=== PATIENT | female | born 1965 | race Caucasian/White ===

== ENCOUNTER → 2017-07-19 08:48 | Outpatient (CLI) | payer MEDICARE, MEDICAID, SELFPAY ==
[2017-07-19 09:27] LABS: Amphetamine/Metha Screen,Urine Negative ng/mL (<1000); Barbiturates Screen,Urine Negative ng/mL (<200); Benzodiazepines Screen,Urine Negative ng/mL (200); Cannabinoid Screen,Urine Negative ng/mL (<50); Cocaine Screen,Urine Negative ng/g (<300); Methadone Screen,Urine Negative ng/mL (<300); Opiate Screen,Urine Positive ng/mL (<300); Phencyclidine Screen,Urine Negative ng/mL (<25)
[2017-07-25 16:13] LABS: Oxycodone (GC/MS) 4760 ng/mL (Cutoff=100)
[2017-07-25 17:15] LABS: Opiates Negative (Cutoff=100); Oxymorphone (GC/MS) 3600 ng/mL (Cutoff=100)
== END ==
PROVIDERS: PCP Family Medicine; Visit Provider Clinical Nurse Specialist Family Health
DX: Z79.899 Other long term (current) drug therapy (principal)
CPT/HCPCS: 80305; 80361; 80365; G0480

== ENCOUNTER → 2017-08-16 12:50 | Outpatient (POV) | payer MEDICARE, MEDICAID, SELFPAY ==
[2017-08-16 13:34] VITALS: BP 154/60; PULSE 96; RESP 20; O2SAT 98; BMI 24.3
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
== END ==
PROVIDERS: PCP Family Medicine; Visit Provider Anesthesiology
DX: M54.16 Radiculopathy, lumbar region (principal)
CPT/HCPCS: 99212

== ENCOUNTER → 2017-12-13 09:48 | Outpatient (POV) | payer MEDICARE, MEDICAID, SELFPAY ==
[2017-12-13 09:55] VITALS: BP 129/85; PULSE 90; RESP 18; O2SAT 98; BMI 24.5
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
[2017-12-13 10:38] LABS: Amphetamine/Metha Screen,Urine Negative ng/mL (<1000); Barbiturates Screen,Urine Negative ng/mL (<200); Benzodiazepines Screen,Urine Negative ng/mL (<200); Cannabinoid Screen,Urine Negative ng/mL (<50); Cocaine Screen,Urine Negative ng/mL (<300); Methadone Screen,Urine Negative ng/mL (<300); Opiate Screen,Urine Positive ng/mL (<300); Phencyclidine Screen,Urine Negative ng/mL (<25)
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
[2017-12-23 23:07] LABS: Oxycodone (GC/MS) >3000 ng/mL (Cutoff=100)
[2017-12-24 06:35] LABS: Opiates Negative (Cutoff=100); Oxymorphone (GC/MS) 1660 ng/mL (Cutoff=100)
== END ==
PROVIDERS: PCP Family Medicine; Visit Provider Clinical Nurse Specialist Family Health
DX: M25.552 Pain in left hip (principal); Z79.899 Other long term (current) drug therapy; M54.16 Radiculopathy, lumbar region
CPT/HCPCS: 80305; 80361; 80365; 99212; G0480